=== PATIENT | female | born 1985 | race Caucasian/White ===

== ENCOUNTER → 2020-11-14 09:26 | Outpatient (BNVA) | payer OTHER, SELFPAY | PROVIDERS: Family Provider Family Medicine; PCP Family Medicine; Visit Provider Nurse Practitioner Family | DX: Z20.822 Contact with and (suspected) exposure to COVID-19 (principal) | CPT/HCPCS: 87635 ==

== ENCOUNTER → 2021-05-05 12:43 | Outpatient (BNVA) | payer OTHER, SELFPAY | PROVIDERS: Family Provider Family Medicine; PCP Family Medicine; Visit Provider Nurse Practitioner Family | DX: Z20.822 Contact with and (suspected) exposure to COVID-19 (principal) | CPT/HCPCS: 87635 ==

== ENCOUNTER → 2021-12-27 09:21 | Outpatient (BNVA) | payer OTHER, SELFPAY | PROVIDERS: Family Provider Family Medicine; PCP Family Medicine; Visit Provider Nurse Practitioner Psychiatric/Mental Health | DX: F33.2 Major depressive disorder, recurrent severe without psychotic features (principal) | CPT/HCPCS: 80053; 80061; 83036; 84439; 84443 ==

== ENCOUNTER → 2022-01-08 13:07 | Outpatient (BNVA) | payer BC, OTHER, SELFPAY | PROVIDERS: Family Provider Family Medicine; PCP Family Medicine; Visit Provider Nurse Practitioner Psychiatric/Mental Health | DX: Z03.89 Encounter for observation for other suspected diseases and conditions ruled out (principal) | CPT/HCPCS: 80061 ==

== ENCOUNTER 2023-05-22 15:14 | Outpatient (CLI) | payer BC, MEDICAID, SELFPAY ==
[2022-07-27 11:06] VITALS: BP 129/95; BMI 41.4
--- NOTE | 2023-05-22 15:21 | MM_ITS ---
WS: [id number] BILATERAL 3D TOMOSYNTHESIS DIGITAL SCREENING MAMMOGRAPHY WITH CAD CLINICAL INFORMATION: SCREENING HISTORY: Screening mammogram. No current complaints. COMPARISON: Baseline TECHNIQUE: Bilateral CC and MLO views. FINDINGS: Scattered fibroglandular densities bilaterally. No suspicious focal mass, asymmetry, calcifications, or architectural distortion. No evidence of malignancy. IMPRESSION: MM/[place] [id number] BI-RADS: 1-Negative FOLLOW UP: 1 Year Follow-up Recommend return to annual screening mammography.
== END 2023-05-22 15:15 | disposition home or self-care (01) ==
LOC: RAD 15:15
PROVIDERS: Family Provider Family Medicine; PCP Family Medicine; Visit Provider Family Medicine
DX: Z12.31 Encounter for screening mammogram for malignant neoplasm of breast (principal)
CPT/HCPCS: 77063; 77067

== ENCOUNTER → 2023-08-10 16:29 | Outpatient (BNVA) | payer OTHER, BC, SELFPAY ==
[2022-07-27 11:06] VITALS: BP 129/95; BMI 41.4
== END ==
PROVIDERS: Family Provider Family Medicine; PCP Family Medicine
DX: J06.9 Acute upper respiratory infection, unspecified (principal); J20.8 Acute bronchitis due to other specified organisms; B96.89 Other specified bacterial agents as the cause of diseases classified elsewhere
CPT/HCPCS: 87400; 87426

== ENCOUNTER 2023-09-10 21:03 | Emergency (ER) | payer OTHER, BC, MEDICAID, SELFPAY ==
[2022-07-27 11:06] VITALS: BP 129/95; BMI 41.4
[2023-09-10] VITALS (13 sets, daily range): BP systolic 140–165; BP diastolic 76–88; PULSE 105–114; RESP 22–23; TEMP 36.8; O2SAT 91–100
--- NOTE | 2023-09-10 21:08 | XRR_ITS ---
PROCEDURE INFORMATION: Exam: XR Chest Exam date and time: 09/10/2023 9:12 PM Age: 38 years old Clinical indication: Cough TECHNIQUE: Imaging protocol: Radiologic exam of the chest. Views: 1 view. COMPARISON: No relevant prior studies available. FINDINGS: Lungs: Unremarkable. No consolidation. Pleural spaces: Unremarkable. No pleural effusion. No pneumothorax. Heart/Mediastinum: Unremarkable. No cardiomegaly. Bones/joints: Unremarkable. Other findings: 2.9 cm linear radiodensity seen over the mid neck, likely external to the patient, please correlate clinically. XR/XR chest 1V portable [id number] IMPRESSION: 1. Negative for infiltrate 2. 2.9 cm linear radiodensity seen over the mid neck, likely external to the patient, please correlate clinically.
[2023-09-11] VITALS (11 sets, daily range): BP systolic 140–169; BP diastolic 76–127; PULSE 92; O2SAT 96–100
--- NOTE | 2023-09-11 00:32 | W.ED.BACK ---
HPI - Back Pain/Injury General: Chief Complaint: Back Pain/Injury Stated Complaint: coughed, back poped, right side went numb Time Seen by Provider: 09/10/23 22:36 History of Present Illness: 38-year-old female presents emergency department complaints of right low back pain. She states that she has had a cold recently and was standing up and started coughing and then she felt a popping type sensation and had immediate muscle spasm to the right side of her back. She denies numbness or tingling urinary incontinence or retention. She denies bowel incontinence or retention. She states her pain is a spasming type pain that is a 10 out of 10 at present. She states that any type of movement seems to make the muscle spasm worse. Review of Systems General: Reports: 10 or more systems reviewed and unremarkable except in HPI and below Musc: Reports: back pain [facility] ED PFSH: Medical History Major depressive disorder, recurrent episode Anxiety Psychiatric care Nicotine dependence, cigarettes, uncomplicated Post-traumatic stress disorder, chronic Major depressive disorder, recurrent severe without psychotic features Social History Smoking and tobacco/nicotine status: current every day tobacco/nicotine user cigarettes Packs smoked per day: 1 Alcohol intake: never Substance/Drug Use: never Physical Exam Narrative: EXAM NARRATIVE: Constitutional: the patient appears well nourished and with normal development. Vital signs reviewed as documented. Mild acute distress HENMT: Normocephalic, atraumatic. External ears normal appearance without drainage. Nose without drainage, normal appearance. Mucus membranes moist. Neck is supple, No jugular venous distension, trachea is midline, no appreciable carotid bruits. No lymphadenopathy. No meningeal signs. Flexion, extension and lateral rotation is without pain. Eyes: Pupils are equal, round, reactive to light and accommodation. No scleral icterus. Extra-ocular movement are intact. Thorax is symmetrical and with equal rise and fall with respirations. Resp: Lungs are clear to auscultation. No wheezes, rales, crackles or ronchi at present. Cardio: Regular rate and rhythm. Positive S1, S2. No appreciable murmurs, rubs or gallops. GI: Abdominal exam reveals normal bowel sounds to all quadrants. No organomegaly. No obvious palpable masses noted. No hepatomegally appreciated. Soft, non-tender to palpation. Extremity: Extremities are non-edematous and both femoral and pedal pulses are 2+ and equal bilaterally. Moves all extremities well, sensation in all extremities. Neuro: Alert and oriented x4, person, place, time and situation. Cranial nerves II through XII are grossly intact, there is no focal neurological deficits that I can appreciate at present. Motor strength in the upper and lower extremities are equal and bilateral 5/5. Psych: Cooperative, calm, normal thought process, appropriate judgment. Skin: No lesions, rashes. No gross abnormalities noted. Back: Symmetrical, no obvious deformity, No CVA tenderness. Right strap muscle spasm noted. Course Vital Signs: Vital signs: Vital Signs Temperature 98.3 F 09/10/23 21:31 Pulse Rate 92 09/11/23 00:20 Respiratory Rate 23 H 09/10/23 23:03 Blood Pressure 169/127 09/11/23 00:25 Pulse Oximetry 99 09/11/23 00:25 Oxygen Delivery Me thod Room Air 09/11/23 00:20 MDM - Back Pain/Injury Medical Decision Making Physical exam completed and documented, I will obtain a radiographic examination, provide the patient intramuscular injection for Norflex and Toradol and provide her a prescription for Flexeril. Medical Records I reviewed the patient's medical records. Labs Radiology Impressions Chest X-Ray 09/10/23 21:08 IMPRESSION: 1. Negative for infiltrate 2. 2.9 cm linear radiodensity seen over the mid neck, likely external to the patient, please correlate clinically. All radiology interpretation(s) finalized by discharge Discharge Plan Discharge Patient Disposition: Home Clinical Impression: Muscle spasm of back Acute low back pain Qualifiers: Back pain laterality: right Sciatica presence: without sciatica Qualified Code(s): M54.50 - Low back pain, unspecified Condition: Stable Prescriptions: New cyclobenzaprine 10 mg tablet 10 mg PO Q8H Qty: 14 0RF naproxen 500 mg tablet 500 mg PO Q12H PRN (Reason: pain) Qty: 20 0RF No Action melatonin 5 mg capsule 5 mg PO .at bed lamotrigine 150 mg tablet 150 mg PO .q hs Qty: 30 2RF Rx Instructions: Take one tablet daily at bedtime; stop 100 mg dose sertraline 100 mg tablet 200 mg PO DAILY Qty: 60 2RF Rx Instructions: Take two tablets by mouth every morning clonazepam 0.5 mg tablet 0.5 mg PO BID PRN (Reason: severe anxiety) Qty: 60 2RF Rx Instructions: Take 1 tablet at bedtime, and once during the day, if needed for anxiety/panic cetirizine [Zyrtec] 10 mg tablet 10 mg PO DAILY Qty: 30 0RF fluticasone propionate [Flonase Allergy Relief] 50 mcg/actuation spray,suspension 2 spray intranasal Q12H Qty: 16 0RF Rx Instructions: administer into each nostril azithromycin [Zithromax] 500 mg tablet 500 mg PO DAILY 5 Days Qty: 5 0RF Discharge Orders: Discharge ED (Routine); Ordered 09/11/23 Ordered By: Ezio Zuleta Referrals: Laya Richards MD [Primary Care Provider] - Discharge Diet: Usual diet Discharge Activity: Resume usual activity Patient Instructions: Opioid Safety, Pain Management Activity Restrictions/Additional Instructions: Activity Restrictions/Additional Instructions: Thank you for choosing [facility] for your healthcare needs today. Please realize that you were seen in the Emergency Department and that we are providing you with an emergency medical screening exam and this may not be a complete and all inclusive of all the testing and or medical work-up that you may need to determine your ailment or severity of your illness. It is very important that you follow-up as instructed with your Primary care provider or Specialist for additional evaluation and to discuss your medical treatment plan. You may return to the Emergency Department should you have concerns or if your condition changes or worsens in any way. Coding Level of Care Code ED [employer] [facility] [employer] for Be Swann
[2023-09-11] MEDS: orphenadrine 30 mg/mL Inj 2 mL 60 MG IM (00:48)
[2023-09-11] MEDS: ketorolac 60 mg/2 mL INJ IM (00:48)
== END 2023-09-11 00:56 | disposition home or self-care (01) ==
PROVIDERS: Emergency Provider Internal Medicine; PCP Family Medicine
DX: M62.830 Muscle spasm of back (principal); M54.50 Low back pain, unspecified; F17.210 Nicotine dependence, cigarettes, uncomplicated
CPT/HCPCS: 71045; 96372; 99284; J1885; J2360

== ENCOUNTER → 2024-01-05 16:50 | Outpatient (BNVA) | payer OTHER, BC, SELFPAY ==
[2022-07-27 11:06] VITALS: BP 129/95; BMI 41.4
== END ==
PROVIDERS: Visit Provider Registered Nurse Neonatal Intensive Care
DX: R10.9 Unspecified abdominal pain (principal); R10.31 Right lower quadrant pain
CPT/HCPCS: 81000

== ENCOUNTER 2024-04-30 16:15 | Outpatient (CLI) | payer OTHER, SELFPAY ==
[2022-07-27 11:06] VITALS: BP 129/95; BMI 41.4
--- NOTE | 2024-04-30 16:27 | XR_ITS ---
WS: [id number] Exam: XR [id number] Date/Time of Exam: 04/30/2024 4:46 PM Reason For Exam: abdominal pain No bowel obstruction or pneumoperitoneum. No sign of organ enlargement. Signs of prior cholecystectom y. Regional bony structures appear normal. Small calcification in the RIGHT pelvis most likely a phle bolith. XR/XR KUB [id number] IMPRESSION: 1. No acute abdominal process.
[2024-04-30 16:51] LABS: Basophils % 0.2 %; Eosinophils % 11.7 %; Hematocrit 38.7 % (36-47); Lymphocytes # 1.8 10^3/uL (0.8-4.8); Lymphocytes % 21.2 %; Mean Corpuscular HGB Conc 32.6 g/dL (30-55); Mean Corpuscular Hemoglobin 28.2 pg (27-33); Mean Corpuscular Volume 86.6 fl (85-98); Mean Platelet Volume 9.6 fL (7.4-10.4); Monocytes # 0.4 10^3/uL (0.2-0.9); Monocytes % 5.1 %; Neutrophils # 5.12 10^3/uL (1.8-7.7); Neutrophils % 61.4 %; Nucleated Red Blood Cells % 0 %; Platelet Count 249 10^3/cmm (157-399); Red Blood Count 4.47 10^6/uL (3.85-5.65); Red Cell Distribution Width 14.4 % (12.1-15.1); White Blood Count 8.35 10^3/uL (3.29-11.43)
[2024-04-30 17:02] LABS: Alanine Aminotransferase 27 U/L (0-33); Albumin Level 4.2 g/dL (3.5-5.2); Alkaline Phosphatase 117 U/L (35-105); Anion Gap 17.6 (5-19); Aspartate Amino Transferase 22 U/L (0-32); Blood Urea Nitrogen 12 mg/dL (6-20); Calcium 8.8 mg/dL (8.5-10.5); Carbon Dioxide 22 mmol/L (22-29); Chloride 101 mmol/L (98-107); Globulin 3.2 g/dL (1.3-4.6); Glomerular Filtration Rate 70.1 mL/min (90-130); Glucose 105 mg/dL (65-115); Osmolality Calculated 284 mOsm/kg (285-295); Potassium 3.6 mmol/L (3.5-5.1); Sodium 137 mmol/L (136-145); Total Bilirubin 0.4 mg/dL (0.15-1.2); Total Protein 7.4 g/dL (6.6-8.7)
== END 2024-04-30 16:16 | disposition home or self-care (01) ==
LOC: RAD 16:22
DX: R10.9 Unspecified abdominal pain (principal); Z76.89 Persons encountering health services in other specified circumstances; I80.8 Phlebitis and thrombophlebitis of other sites; Z90.49 Acquired absence of other specified parts of digestive tract
CPT/HCPCS: 36415; 74018; 80053; 85025

== ENCOUNTER → 2024-05-28 14:23 | Outpatient (BNVA) | payer OTHER, SELFPAY ==
[2022-07-27 11:06] VITALS: BP 129/95; BMI 41.4
== END ==
PROVIDERS: Referring Provider Nurse Practitioner Psychiatric/Mental Health; Visit Provider Internal Medicine Cardiovascular Disease
DX: Z03.89 Encounter for observation for other suspected diseases and conditions ruled out (principal); I49.8 Other specified cardiac arrhythmias; R94.31 Abnormal electrocardiogram [ECG] [EKG]
CPT/HCPCS: 93005

== ENCOUNTER → 2024-06-18 15:12 | Outpatient (BNVA) | payer OTHER, BC, SELFPAY ==
[2022-07-27 11:06] VITALS: BP 129/95; BMI 41.4
== END ==
PROVIDERS: Visit Provider Nurse Practitioner Psychiatric/Mental Health
DX: Z03.89 Encounter for observation for other suspected diseases and conditions ruled out (principal); F90.0 Attention-deficit hyperactivity disorder, predominantly inattentive type; F33.1 Major depressive disorder, recurrent, moderate; F41.9 Anxiety disorder, unspecified; F43.12 Post-traumatic stress disorder, chronic
CPT/HCPCS: 80306

== ENCOUNTER → 2025-03-09 16:02 | Outpatient (BNVA) | payer OTHER, BC, SELFPAY ==
[2022-07-27 11:06] VITALS: BP 129/95; BMI 41.4
== END ==
DX: R51.9 Headache, unspecified (principal); G89.29 Other chronic pain
CPT/HCPCS: 80053; 84443; 85025

== ENCOUNTER → 2025-03-23 11:08 | Outpatient (BNVA) | payer OTHER, BC, MEDICAID, SELFPAY ==
[2022-07-27 11:06] VITALS: BP 129/95; BMI 41.4
== END ==
PROVIDERS: Visit Provider Family Medicine
DX: E66.01 Morbid (severe) obesity due to excess calories (principal); Z68.42 Body mass index [BMI] 45.0-49.9, adult
CPT/HCPCS: 84132